=== PATIENT | male | born 1985 | race Hispanic/Latino ===

== ENCOUNTER 2018-01-13 06:08 | Day surgery (SDC) | payer OTHER ==
[2018-01-09 09:53] VITALS: BP 117/65
[2018-01-09 10:05] LABS: EOSINOPHILS % (AUTO) 2.2 % (0.0-8.0); HEMATOCRIT 44.2 % (42-54); LYMPHOCYTES % (AUTO) 37.2 % (21.0-51.0); MEAN CORPUSCULAR HEMOGLOBIN 30.9 pg (27.0-33.0); MEAN CORPUSCULAR HGB CONC 34.1 g/dL (32.0-36.0); MEAN CORPUSCULAR VOLUME 90.5 fL (79-99); MONOCYTES % (AUTO) 8.5 % (3.0-13.0); NEUTROPHILS % (AUTO) 52.1 % (40.0-77.0); PLATELET COUNT (AUTO) 316 K/uL (130-400); RED BLOOD CELL COUNT(AUTO) 4.88 MIL/uL (4.50-6.20); RED CELL DISTRIBUTION WIDTH 13.9 % (11.0-15.5); WHITE BLOOD COUNT (AUTO) 13.1 K/uL (4.8-10.8)
[2018-01-09 10:19] LABS: POTASSIUM 4.1 mmol/L (3.5-5.1)
[2018-01-09 10:22] LABS: INR 0.89 (0.85-1.15); PARTIAL THROMBOPLASTIN TIME 27.6 SEC (26.3-35.5); PROTHROMBIN TIME 9.4 SEC (9.6-11.6)
[~2018-01-13] VITALS: Ht 162.6 cm; Wt 126.4 kg
[~2018-01-13 06:08] MED LIST: AEC81 PO; ATOR40TA71 PO; LISI-613 PO; METF-444 PO; SODIUM CHLORIDE 0.9% 1000ML 1,000 ML IV SCH; TICA90TA PO
[2018-01-13 06:32] LABS: BASOPHILS % (AUTO) 0.5 % (0.0-5.0); EOSINOPHILS % (AUTO) 2.4 % (0.0-8.0); HEMATOCRIT 43.5 % (42-54); LYMPHOCYTES % (AUTO) 38.9 % (21.0-51.0); MEAN CORPUSCULAR HGB CONC 33.3 g/dL (32.0-36.0); MEAN CORPUSCULAR VOLUME 90.1 fL (79-99); MONOCYTES % (AUTO) 8.7 % (3.0-13.0); NEUTROPHILS % (AUTO) 49.5 % (40.0-77.0); NUCLEATED RED BLOOD CELLS 0.1 % (0.0-0.19); PLATELET COUNT (AUTO) 276 K/uL (130-400); RED BLOOD CELL COUNT(AUTO) 4.83 MIL/uL (4.50-6.20); RED CELL DISTRIBUTION WIDTH 14.2 % (11.0-15.5)
== END 2018-01-13 08:00 | disposition home or self-care (01) ==
LOC: DAH 06:08 → EDSTATUS 09:00
PROVIDERS: ATTEND Internal Medicine Cardiovascular Disease
DX: Z01.818 Encounter for other preprocedural examination (principal); I67.9 Cerebrovascular disease, unspecified; Z68.41 Body mass index [BMI] 40.0-44.9, adult; Z79.899 Other long term (current) drug therapy; Z79.84 Long term (current) use of oral hypoglycemic drugs; E66.9 Obesity, unspecified; I10 Essential (primary) hypertension; E78.5 Hyperlipidemia, unspecified; E11.9 Type 2 diabetes mellitus without complications; Z98.890 Other specified postprocedural states; Z82.49 Family history of ischemic heart disease and other diseases of the circulatory system
CPT/HCPCS: 36415 ×2; 80048; 82948; 85025 ×2; 85610; 85730; A4606; J7030

== ENCOUNTER → 2023-08-15 | Outpatient (CLI) | payer OTHER ==
[~2023-08-15] MED LIST changes: +CYCL-309 PO; +IOHEXOL 350 MG/ML 100ML INFUS..BTL IV ONE; -LISI-613 PO; +LISI20TA24 PO; +METOPROLOL TARTRATE 1 MG/ML 5ML VIAL IV ONE; -SODIUM CHLORIDE 0.9% 1000ML 1,000 ML IV SCH
== END | disposition home or self-care (01) ==
LOC: RAH 07:51
PROVIDERS: ATTEND Student in an Organized Health Care Education/Training Program
DX: R55 Syncope and collapse (principal); M47.815 Spondylosis without myelopathy or radiculopathy, thoracolumbar region
CPT/HCPCS: 75574; J3490; Q9967

== ENCOUNTER 2023-10-19 01:16 | Emergency (ER) | payer OTHER ==
[~2023-10-19] VITALS: Ht 167.6 cm; Wt 110.2 kg
[~2023-10-19 01:16] MED LIST changes: -IOHEXOL 350 MG/ML 100ML INFUS..BTL IV ONE; -METOPROLOL TARTRATE 1 MG/ML 5ML VIAL IV ONE
[2023-10-19 01:18] VITALS: BP 127/79; PULSE 93; RESP 20
[2023-10-19] MEDS: KETOROLAC 30MG VIAL (30MG/ML) IM ONE (01:34)
[2023-10-19] MEDS ORDERED: KETO10TA2 PO (01:51)
== END 2023-10-19 02:21 | disposition home or self-care (01) ==
LOC: EDH 01:16
DX: S46.912A Strain of unspecified muscle, fascia and tendon at shoulder and upper arm level, left arm, initial encounter (principal); M65.4 Radial styloid tenosynovitis [de Quervain]; E11.9 Type 2 diabetes mellitus without complications; I10 Essential (primary) hypertension; Z86.73 Personal history of transient ischemic attack (TIA), and cerebral infarction without residual deficits; Z95.5 Presence of coronary angioplasty implant and graft; Z79.899 Other long term (current) drug therapy; Z79.82 Long term (current) use of aspirin; Z79.84 Long term (current) use of oral hypoglycemic drugs; Z98.890 Other specified postprocedural states; X58.XXXA Exposure to other specified factors, initial encounter; Y93.89 Activity, other specified; Y92.89 Other specified places as the place of occurrence of the external cause; Y99.8 Other external cause status
CPT/HCPCS: 99283; 29260; 96372; J1885

== ENCOUNTER → 2024-01-22 | Outpatient (CLI) | payer OTHER ==
[~2024-01-22] MED LIST changes: +KETO10TA2 PO
--- NOTE | 2024-01-26 08:38 | HMCSR ---
APPROVED REPORT Laterality: Bilateral VELOCITY AND DOPPLER WAVEFORM ANALYSIS STARS COORDINATOR (R) 115.8cm/sec, Triphasic, STARS COORDINATOR (L) 103.5cm/sec, Triphasic, Prof Fem Art. (R) 60.4cm/sec, Triphasic, Prof Fem Art. (L) 59.4cm/sec, Triphasic, Fem Art Prox. (R) 94.6cm/sec, Triphasic, Fem Art Prox. (L) 87.0cm/sec, Triphasic, Fem Art Mid. (R) 81.6cm/sec, Triphasic, Fem Art Mid. (L) 78.7cm/sec, Triphasic, Fem Art Dist (R) 81.6cm/sec, Triphasic, Fem Art Dist. (L) 58.0cm/sec, Triphasic, Pop Art(AK) (R) 58.7cm/sec, Triphasic, Pop Art (AK) (L) 63.5cm/sec, Triphasic, Pop Art (Fossa)(R) 45.2cm/sec, Triphasic, Pop Art (Fossa) (L) 60.7cm/sec, Triphasic, Pop Art(BK) (R) 57.9cm/sec, Triphasic, Pop Art (BK) (L) 63.5cm/sec, Triphasic, FORECLOSURE FIELD INSPECTOR Dist. (R) 46.5cm/sec, Triphasic, FORECLOSURE FIELD INSPECTOR Dist. (L) 61.9cm/sec, Triphasic, Per Art Dist. (R) 28.5cm/sec, Biphasic, Per Art Dist. (L) cm/sec, Not visualized RY Dist. (R) 62.0cm/sec, Triphasic, RY Dist. (L) 44.9cm/sec, Triphasic, Technologist Impression Diffuse atherosclerosis throughout the bilateral lower extremities with no evidence of significant ar terial insufficiency. Conclusion Diffuse atherosclerosis throughout the bilateral lower extremities with no evidence of significant ar terial insufficiency. Conclusion Diffuse atherosclerosis throughout the bilateral lower extremities with no evidence of significant ar terial insufficiency.
== END | disposition home or self-care (01) ==
LOC: SHCH 11:06
PROVIDERS: ATTEND Student in an Organized Health Care Education/Training Program
DX: I70.293 Other atherosclerosis of native arteries of extremities, bilateral legs (principal); R20.2 Paresthesia of skin
CPT/HCPCS: 93925